=== PATIENT | male | born 1935 | race Caucasian/White ===

== ENCOUNTER 2019-11-24 12:45 | Observation (INO) | payer OTHER ==
--- NOTE | 2019-11-24 13:18 | PDOC ---
History of Present Illness - General Chief Complaint: Injury Stated Complaint: FALL/HEAD INJURY Time Seen by Provider: 11/24/19 13:17 - History of Present Illness Initial Comments: HPI: 84yo M with PMH of CKD, HTN, DM presenting after a fall. Patient states he fell earlier today while his was at a doctor's appointment. The patient was stepping out of a vehicle and suddenly fell back and hit his head. He does not know why he fell. Denies tripping or a mechanical reason for why he fell. Did not feel dizziness/weakness, chest pain, or shortness of breath. Remembers the entire episode which was witnessed by his health aide. No loss of consciousness , nausea, or vomiting. Endorsing mild neck pain. Has fallen about five times in the past year for unknown reason. His at the bedside states that he has become confused for the past six months or so. No fever or chills. PCP: Dr. Sameer Ansari ROS: Constitutional: no fever, no chills HEENT: no throat pain, no dysphagia Cardiovascular: no chest pain, no palpitations Respiratory: no cough, no shortness of breath Gastrointestinal: no abdominal pain, no nausea Genitourinary: no dysuria, no hematuria Musculoskeletal: no myalgia, no arthralgia Skin: no rash, no itching Neurologic: no headache, no weakness PE: General: Awake, alert, in no acute distress, oriented x 2 (to person, place, but not time- said it was "July" and "2011") Head: No signs of trauma Eyes: EOMI, sclera anicteric ENT: Moist mucus membranes Neck: Normal ROM, supple Lungs: Lungs clear, Normal breath sounds Cardio: Regular rhythm, S1 and S2 present Abdomen: Soft, nontender. No guarding, no rebound, no masses Extremities: Normal range of motion, Distal pulses present SKIN: Warm, Dry, normal turgor Neurologic: Cranial nerves II through XII intact. Normal speech, sensation, strength, coordination. Ambulating with cane at baseline. ED Course/MDM: DDX including but not limited to ACS, anemia, metabolic derangement, mechanical fall vs syncope, seizure Labs, EKG, CXR CT Head CT Cspine 11/24/19 13:17 CT Head: "EXAM#: TYPE/EXAM: RESULT: [id number] CT/CERVICAL SPINE CT W/O CONTR [id number] CT/HEAD CT WITHOUT CONTRAST Status post fall. Rule out fracture CT scan of the brain. A noncontrast CT scan of the brain was performed. There is moderate volume loss and ventricular dilatation. Moderate chronic microvascular ischemic changes are present No mass lesion, gross acute infarct or intracranial hemorrhage are identified. Visualized paranasal sinuses and mastoid air cells are well aerated. Calcification of the cavernous carotid arteries are noted. The calvarium is intact . Impression: Moderate atrophy. No gross evidence of a focal intracranial lesion or hemorrhage is seen. Correlate clinically to determine further evaluation and follow-up " CT Cspine: "CT scan of the cervical spine without intravenous contrast Coronal and sagittal reconstruction images were obtained. No gross fracture, subluxation or prevertebral soft tissue swelling is seen. No jumped facets are identified. C4-C5 moderately severe degenerative disc disease with mild broad- based disc osteophyte complex. C5-C6 moderately severe degenerative disc disease with vacuum phenomenon and [id number] central/right paracentral disc osteophyte complex. There is significant bilateral facet hypertrophy at multiple levels Visualized portion of the airway appears unremarkable. No gross enlarged lymph nodes are identified. Small calcified plaques at the left common carotid bifurcation Lung windows at the thoracic inlet appear unremarkable. IMPRESSION: The alignment is satisfactory. No gross fracture or subluxation is seen. Multilevel degenerative disc disease, disc osteophyte complex and bilateral facet hypertrophy, as described above. " CXR: "EXAM#: TYPE/EXAM: RESULT: [id number] RAD/CHEST X-RAY PORTABLE* Chest: Weakness A portable view of the chest is been submitted. Since 01/14/2013, there is no change of an adverse nature. There is a normal heart, normal aorta and normal jack. There is slight fullness of the superior mediastinum on the right. The lungs are clear. Angles are sharp and the bones appear intact. Correlation recommended Impression: No acute chest pathology. Reported By: Walker Crews MD 11/24/19 [id number] " CBC WBC 6.3 K/mm3 (4.0-10.0) 11/24/19 14:30 RBC 3.61 M/mm3 (4.00-5.60) L 11/24/19 14:30 Hgb 11.5 GM/dL (11.7-16.9) L 11/24/19 14:30 Hct 34.1 % (35.4-49) L 11/24/19 14:30 MCV 94.4 fl (80-96) 11/24/19 14:30 MCH 31.9 pg (25.7-33.7) 11/24/19 14:30 MCHC 33.8 g/dl (32.0-35.9) 11/24/19 14:30 RDW 13.1 % (11.9-15.9) 11/24/19 14:30 Plt Count 192 K/MM3 (134-434) 11/24/19 14:30 MPV 10.1 fl (7.5-11.1) 11/24/19 14:30 Absolute Neuts (auto) 4.6 K/mm3 (1.5-8.0) 11/24/19 14:30 Neutrophils % 73.8 % (42.8-82.8) 11/24/19 14:30 Lymphocytes % 17.9 % (8-40) 11/24/19 14:30 Monocytes % 6.3 % (3.8-10.2) 11/24/19 14:30 Eosinophils % 1.7 % (0-4.5) 11/24/19 14:30 Basophils % 0.3 % (0-2.0) 11/24/19 14:30 Nucleated RBC % 0 % (0-0) 11/24/19 14:30 No leukocytosis CMP Sodium 144 mmol/L (136-145) 11/24/19 14:30 Potassium 5.2 mmol/L (3.5-5.1) H 11/24/19 14:30 Chloride 110 mmol/L (98-107) H 11/24/19 14:30 Carbon Dioxide 27 mmol/L (21-32) 11/24/19 14:30 Anion Gap 7 MMOL/L (8-16) L 11/24/19 14:30 BUN 36.4 mg/dL (7-18) H 11/24/19 14:30 Creatinine 1.9 mg/dL (0.55-1.3) H 11/24/19 14:30 Est GFR (CKD-EPI)AfAm 36.19 11/24/19 14:30 Est GFR (CKD-EPI)NonAf 31.23 11/24/19 14:30 Random Glucose 140 mg/dL (74-106) H 11/24/19 14:30 Calcium 9.3 mg/dL (8.5-10.1) 11/24/19 14:30 Total Bilirubin 0.4 mg/dL (0.2-1) 11/24/19 14:30 AST 18 U/L (15-37) 11/24/19 14:30 ALT 24 U/L (13-61) 11/24/19 14:30 Alkaline Phosphatase 30 U/L (45-117) L 11/24/19 14:30 Creatine Kinase 284 U/L (26-308) 11/24/19 14:30 Creatine Kinase Index 1.5 % (0.0-5.0) 11/24/19 14:30 CK-MB (CK-2) 4.5 ng/mL (0.5-3.6) H 11/24/19 14:30 Troponin I 0.12 ng/ml (0.00-0.05) H 11/24/19 14:30 Total Protein 7.6 g/dl (6.4-8.2) 11/24/19 14:30 Albumin 4.0 g/dl (3.4-5.0) 11/24/19 14:30 K mildly elevated Cr elevated (appears to be at baseline) Tpn elevated, 0.12, no prior values available Concern for syncope given elevated tpn and repeated falls Plan for admission; observation is appropriate as patient with suspected cardiac ischemia with nondiagnostic initial evaluation requiring further immediate evaluation such as stress testing, imaging, and repeat laboratory testing to clarify diagnosis EKG: rate 74, Qtc 459, Sinus, PACs, no prior EKGs available 11/24/19 15:[address] Alfredo who accepted patient for tele obs under himself 11/24/19 17:11 Past History - Past Medical History Allergies/Adverse Reactions: Allergies Allergy/AdvReac Type Severity Reaction Status Date / Time exenatide [From Byetta] Allergy Verified 11/24/19 13:00 Home Medications: Ambulatory Orders Amlodipine Besylate [Norvasc -] 5 mg PO DAILY 06/01/13 Aspirin 81 mg PO DAILY 06/01/13 Losartan Potassium 50 mg PO DAILY 06/01/13 Tamsulosin HCl 0.4 mg PO DAILY 06/01/13 Hydrochlorothiazide 12.5 mg PO DAILY 11/24/19 Anemia: No Asthma: No Cancer: Yes (PROSTATE) Cardiac Disorders: No CVA: No COPD: No CHF: No Dementia: No Diabetes: Yes GI Disorders: Yes (H/O COLON POLYPS) Disorders: No HTN: Yes Hypercholesterolemia: No Liver Disease: No Seizures: No Thyroid Disease: No - Surgical History Abdominal Surgery: No Appendectomy: Yes Cardiac Surgery: No Cholecystectomy: Yes (LAP) Lung Surgery: No Neurologic Surgery: No Orthopedic Surgery: No - Psycho Social/Smoking Cessation Hx Smoking History: Never smoked Hx Alcohol Use: No Drug/Substance Use Hx: No Substance Use Type: None Hx Substance Use Treatment: No *Physical Exam - Vital Signs Last Vital Signs Temp Pulse Resp BP Pulse Ox 97.8 F 81 18 156/63 99 11/24/19 13:00 11/24/19 13:00 11/24/19 13:00 11/24/19 13:00 11/24/19 13:00 ED Treatment Course - LABORATORY CBC & Chemistry Diagram: 11/24/19 14:30 11/24/19 14:30 Discharge - Discharge Information Problems reviewed: Yes Clinical Impression/Diagnosis: Elevated troponin Fall Qualifiers: Encounter type: initial encounter Qualified Code(s): W19.XXXA - Unspecified fall, initial encounter Condition: Guarded - Admission Yes - Follow up/Referral - Patient Discharge Instructions - Post Discharge Activity
[2019-11-24 14:48] LABS: BASO % 0.3 % (0-2.0); EOS % 1.7 % (0-4.5); HEMATOCRIT 34.1 % (35.4-49); HEMOGLOBIN 11.5 GM/dL (11.7-16.9); LYMPH % 17.9 % (8-40); MCH 31.9 pg (25.7-33.7); MCHC 33.8 g/dl (32.0-35.9); MEAN CELL VOLUME 94.4 fl (80-96); MEAN PLT VOLUME 10.1 fl (7.5-11.1); MONO % 6.3 % (3.8-10.2); NEUT % 73.8 % (42.8-82.8); PLATELET COUNT 192 K/MM3 (134-434); RBC 3.61 M/mm3 (4.00-5.60); RDW 13.1 % (11.9-15.9); WHITE BLOOD COUNT 6.3 K/mm3 (4.0-10.0)
[2019-11-24 15:14] LABS: BILIRUBIN,TOTAL 0.4 mg/dL (0.2-1); BLOOD UREA NITROGEN 36.4 mg/dL (7-18); CALCIUM 9.3 mg/dL (8.5-10.1); CREATININE 1.9 mg/dL (0.55-1.3); POTASSIUM 5.2 mmol/L (3.5-5.1); TOT PROT 7.6 g/dl (6.4-8.2)
[2019-11-24] MEDS ORDERED: ACETAMINOPHEN 325 MG TABLET (FP) PO PRN (17:47)
--- NOTE | 2019-11-24 17:53 | HP ---
CHIEF COMPLAINT: fall PCP: Dr Beasley HISTORY OF PRESENT ILLNESS: Patient is a 84 yo male with a history of HTN, DM, and CKD, who presents s/p fall. Patient was standing at an office when he fell to the ground. he did not trip and he did not lose consciousness. he denies having any dizzines, spinning sensation, chest pain, nausea, or lose of bladder function. Patient reports he did hit his head but is not in any pain. he has not fallen in the past. patient usually walks with a cane. he currently denies any symptoms and he is compliant with his medications. The fall was witnessed with no differing to the story. No sick contacts recently. ER course was notable for: (1) (2) (3) Recent Travel: denies PAST MEDICAL HISTORY: HTN, DM, and ? CKD PAST SURGICAL HISTORY: appendectomy Social History: Smoking: never Alcohol: very occasionally Drugs: denies Allergies exenatide [From Byetta] Allergy (Verified 11/24/19 13:00) HOME MEDICATIONS: Home Medications Medication Instructions Recorded Amlodipine Besylate [Norvasc -] 5 mg PO DAILY 06/01/13 Aspirin 81 mg PO DAILY 06/01/13 Cholecalciferol (Vitamin D3) 1,000 unit PO DAILY 06/01/13 [Vitamin D] Furosemide [Lasix -] 40 mg PO DAILY 06/01/13 Insulin Glargine,Hum.rec.anlog 3 units SQ HS 06/01/13 [Lantus Solostar PEN -] Insulin Glulisine [Apidra] 3 unit SQ DAILY 06/01/13 Insulin Glulisine [Apidra] 4 unit SQ DAILY 06/01/13 Insulin Glulisine [Apidra] 5 unit SQ DAILY 06/01/13 Losartan Potassium 100 mg PO DAILY 06/01/13 Metoprolol Succinate [Toprol XL -] 50 mg PO DAILY 06/01/13 Tamsulosin HCl 0.4 mg PO DAILY 06/01/13 REVIEW OF SYSTEMS CONSTITUTIONAL: Absent: fever, chills, diaphoresis, generalized weakness, malaise, loss of appetite, weight change HEENT: Absent: rhinorrhea, nasal congestion, throat pain, throat swelling, difficulty swallowing, mouth swelling, ear pain, eye pain, visual changes CARDIOVASCULAR: Absent: chest pain, syncope, palpitations, irregular heart rate, lightheadedness , peripheral edema RESPIRATORY: Absent: cough, shortness of breath, dyspnea with exertion, orthopnea, wheezing, stridor, hemoptysis GASTROINTESTINAL: Absent: abdominal pain, abdominal distension, nausea, vomiting, diarrhea, constipation, melena, hematochezia GENITOURINARY: Absent: dysuria, frequency, urgency, hesitancy, hematuria, flank pain, genital pain MUSCULOSKELETAL: Absent: myalgia, arthralgia, joint swelling, back pain, neck pain SKIN: Absent: rash, itching, pallor HEMATOLOGIC/IMMUNOLOGIC: Absent: easy bleeding, easy bruising, lymphadenopathy, frequent infections ENDOCRINE: Absent: unexplained weight gain, unexplained weight loss, heat intolerance, cold intolerance NEUROLOGIC: Absent: headache, focal weakness or paresthesias, dizziness, unsteady gait, seizure, mental status changes, bladder or bowel incontinence PSYCHIATRIC: Absent: anxiety, depression, suicidal or homicidal ideation, hallucinations. PHYSICAL EXAMINATION Vital Signs - 24 hr 11/24/19 13:00 Temperature 97.8 F Pulse Rate 81 Respiratory 18 Rate Blood Pressure 156/63 O2 Sat by Pulse 99 Oximetry (%) GENERAL: Awake, alert, and fully oriented, in no acute distress. HEAD: Normal with no signs of trauma. EYES: Pupils equal, round and reactive to light, extraocular movements intact, EARS, NOSE, THROAT: Moist mucous membranes. NECK: Normal range of motion, supple without lymphadenopathy, JVD, or masses. LUNGS: Breath sounds equal, clear to auscultation bilaterally. No wheezes, and no crackles. No accessory muscle use. HEART: Regular rate and rhythm, normal S1 and S2 without murmur, rub or gallop. ABDOMEN: Soft, nontender, not distended, normoactive bowel sounds, MUSCULOSKELETAL: Normal range of motion at all joints. No bony deformities or tenderness. No CVA tenderness. LOWER EXTREMITIES: 2+ pulses, warm, well-perfused. No calf tenderness. No peripheral edema. NEUROLOGICAL: Cranial nerves II-XII intact. Normal speech. PSYCHIATRIC: Cooperative. Good eye contact. Appropriate mood and affect. SKIN: Warm, dry, normal turgor, Laboratory Results - last 24 hr 11/24/19 11/24/19 14:30 14:30 WBC 6.3 RBC 3.61 L Hgb 11.5 L Hct 34.1 L MCV 94.4 MCH 31.9 MCHC 33.8 RDW 13.1 Plt Count 192 MPV 10.1 Absolute Neuts (auto) 4.6 Neutrophils % 73.8 Lymphocytes % 17.9 Monocytes % 6.3 Eosinophils % 1.7 Basophils % 0.3 Nucleated RBC % 0 Sodium 144 Potassium 5.2 H Chloride 110 H Carbon Dioxide 27 Anion Gap 7 L BUN 36.4 H Creatinine 1.9 H Est GFR (CKD-EPI)AfAm 36.19 Est GFR (CKD-EPI)NonAf 31.23 Random Glucose 140 H Calcium 9.3 Total Bilirubin 0.4 AST 18 ALT 24 Alkaline Phosphatase 30 L Creatine Kinase 284 Creatine Kinase Index 1.5 CK-MB (CK-2) 4.5 H Troponin I 0.12 H Total Protein 7.6 Albumin 4.0 ASSESSMENT/PLAN: Patient is a 84 yo male with a history of HTN, DM, and CKD, who is admitted for fall. #Fall r/o cardiogenic vs vascular vs mechanical - orthostatics negative, no hx of falls in the past - head CT: negative, moderate dilitation - Cervical CT: degenerative disc disease , small calcified plaques - f/u PT eval - f/u echo and carotids - monitor on tele #DM - SS - BGM ACHS #HTN - continue amlodipine - hold HCTZ and losartan in setting of hyperkalemia - continue to monitor, can consider BB if uncontrolled #CKD - baseline ~1.7 - will hold nephrotoxic HTN medications for now #tropinemia - likely 2/2 to CKD - f/u repeat trop at 7 pm - if continues to rise call cardio - ekg without any st elevations or peaked t waves #BPH - continue tamsulosin FEN - hyperkalemia likely 2/2 to CKD, 1 time lokelma - low sodium/diabetic diet Dispo: monitor on tele, fu PT tomorrow Visit type - Emergency Visit Emergency Visit: Yes ED Registration Date: 11/24/19 Care time: The patient presented to the Emergency Department on the above date and was hospitalized for further evaluation of their emergent condition. - New Patient This patient is new to me today: Yes Date on this admission: 11/30/19 - Critical Care Critical Care patient: No ATTENDING PHYSICIAN STATEMENT I saw and evaluated the patient. I reviewed the resident's note and discussed the case with the resident. I agree with the resident's findings and plan as documented. SUBJECTIVE: OBJECTIVE: ASSESSMENT AND PLAN:
[2019-11-24] MEDS ORDERED: ASPIRIN 325 MG TABLET PO ONE (17:54)
[2019-11-24] MEDS ORDERED: SODIUM ZIRCONIUM CYCLOSILICATE (LOKELMA) 5 GM PACKET PO ONE (18:00)
--- NOTE | 2019-11-24 18:42 | PDOC ---
Documentation entered by Kira Linares SCRIBE, acting as scribe for Teena Ferguson MD. Teena Ferguson MD: This documentation has been prepared by the Vijay ch Nirvannie, SCRIBE, under my direction and personally reviewed by me in its entirety. I confirm that the documentation accurately reflects all work, treatment, procedures, and medical decision making performed by me. Attending Attestation - Resident Resident Name: LisaRoJoan - ED Attending Attestation I have performed the following: I have examined & evaluated the patient, The case was reviewed & discussed with the resident, I agree w/resident's findings & plan, Exceptions are as noted - HPI HPI: 11/24/19 14:27 The patient is an 84 year old male, with a significant past medical history of prostate ca, hypertension, who presents to the emergency department s/p fall with neck pain. As per patient, [facility] He endorses being able to ambulate with a steady gait s/p fall but has been experiencing persistent neck pain since the fall prompting his arrival to the ED. Patient has fallen approximately 5x from 11/13-11/14. He denies any loss of consciousness, focal changes in strength/sensation, chest pain, or shortness of breath. Allergies: Exenatide Primary Care Physician: Sameer Chandler - Physicial Exam PE: 11/24/19 14:27 GENERAL: +Awake, alert and oriented x2, in no acute distress HEAD: No signs of trauma EYES: PERRLA, EOMI, sclera anicteric, conjunctiva clear ENT: Auricles normal inspection, hearing grossly normal, nares patent, oropharynx clear without exudates. Moist mucosa NECK: No tenderness, step-offs, or deformity. No midline tenderness. Normal ROM , supple, no lymphadenopathy, JVD, or masses LUNGS: Breath sounds equal, clear to auscultation bilaterally. No wheezes, and no crackles HEART: Regular rate and rhythm, normal S1 and S2, no murmurs, rubs or gallops ABDOMEN: Soft, nontender, normoactive bowel sounds. No guarding, no rebound. No masses EXTREMITIES: Normal range of motion, no edema. No clubbing or cyanosis. No cords, erythema, or tenderness NEUROLOGICAL: Cranial nerves II through XII grossly intact. Normal speech. SKIN: Warm, Dry, normal turgor, no rashes or lesions noted. - Medical Decision Making 11/24/19 18:38 Pt presents to the Ed complaining of fall today. Mechanism of fall is unclear, although patient does not report LOC. CT head and C spine checked to rule out intracranial or cervical spinal injury and are negative. Labs show elevated troponin. Given that finding and the unclear history of the fall, will admit to medicine for serial troponins and syncope work up.
[2019-11-24] MEDS ORDERED: ASPIRIN 325 MG ENTERIC COATED TABLET (FP) ONE (18:47)
--- NOTE | 2019-11-24 19:13 | PN ---
Teaching Attending Note Name of Resident: Chelo Whipple ATTENDING PHYSICIAN STATEMENT I saw and evaluated the patient. I reviewed the resident's note and discussed the case with the resident. I agree with the resident's findings and plan as documented. SUBJECTIVE: Feels well. Denies preceding CP/palpitations/lightheadedness. No LOC. No bladder/bowel dysfunction. OBJECTIVE: Afebrile, Hemodynamically Stable. Last Vital Signs Temp Pulse Resp BP Pulse Ox 97.8 F 81 18 156/63 99 11/24/19 13:00 11/24/19 13:00 11/24/19 13:00 11/24/19 13:11/24/19 13:00 HEENT - Atraumatic, Normocephalic. Heart - S1, S2, RRR Lungs - Clear to auscultation Abdomen - soft, non-tender. Bowel Sounds normal. Extremities - no edema, no calf tenderness. Neuro - AAO x 2. Tone/Power normal LEs. Laboratory Results - last 24 hr 11/24/19 11/24/19 14:30 14:30 WBC 6.3 RBC 3.61 L Hgb 11.5 L Hct 34.1 L MCV 94.4 MCH 31.9 MCHC 33.8 RDW 13.1 Plt Count 192 MPV 10.1 Absolute Neuts (auto) 4.6 Neutrophils % 73.8 Lymphocytes % 17.9 Monocytes % 6.3 Eosinophils % 1.7 Basophils % 0.3 Nucleated RBC % 0 Sodium 144 Potassium 5.2 H Chloride 110 H Carbon Dioxide 27 Anion Gap 7 L BUN 36.4 H Creatinine 1.9 H Est GFR (CKD-EPI)AfAm 36.19 Est GFR (CKD-EPI)NonAf 31.23 Random Glucose 140 H Calcium 9.3 Total Bilirubin 0.4 AST 18 ALT 24 Alkaline Phosphatase 30 L Creatine Kinase 284 Creatine Kinase Index 1.5 CK-MB (CK-2) 4.5 H Troponin I 0.12 H Total Protein 7.6 Albumin 4.0 Current Medications Generic Name Dose Route Start Last Admin Trade Name Freq PRN Reason Stop Dose Admin Acetaminophen 650 mg 11/24/19 17:47 Tylenol - PO Q4H PRN PAIN LEVEL 6-10 Amlodipine Besylate 5 mg 11/25/19 10:00 Norvasc - PO DAILY FANTA Heparin Sodium (Porcine) 5,000 unit 11/24/19 22:00 Heparin - SQ TID [facility] Insulin Aspart 1 vial 11/24/19 22:00 Novolog Vial Sliding Scale - SQ ACHS [facility] Protocol Tamsulosin HCl 0.4 mg 11/25/19 08:30 Flomax - PO DAILY@0830 [facility] Home Medications Medication Instructions Recorded Amlodipine Besylate [Norvasc -] 5 mg PO DAILY 06/01/13 Aspirin 81 mg PO DAILY 06/01/13 Losartan Potassium 50 mg PO DAILY 06/01/13 Tamsulosin HCl 0.4 mg PO DAILY 06/01/13 Hydrochlorothiazide 12.5 mg PO DAILY 11/24/19 ASSESSMENT AND PLAN: 84 year old male with history of HTN, DM 2, CKD 3, presents s/p fall. No preceding chest pain/palpitations/SOB/lightheadedness. Sustained HI but no LOC. 1. Mechanical Fall versus Syncope Orthostatics negative CT head - no acute findings CT C-Spine - multilevel DJD Telemonitoring Echo Carotid Duplex PT 2. Troponin Egression, likely chronic sec to CKD 3 ECG - no acute changes Asymptomatic. Echo pending. Telemonitoring Trend TropI Cardiology consult if Trops are dynamic. 3. Hyperkalemia ?sec to CKD +/- ARB ARB held. [employer]knowledge Monitor K. 4. DM 2- Maintain on Novolog sliding scale. A1c requested. 5. HTN - continue Norvasc. Losartan held. 6. CKD 3 - Stable. Creat at baseline. 7. BPH - continue Tamsulosin. DVT Px - Heparin SQ
[2019-11-24] MEDS: HEPARIN NA (PORCINE) 5,000 UNITS/ML 1ML VIAL SQ SCH (23:38)
[2019-11-24] MEDS: INSULIN SLIDING SCALE (NOVOLOG) 1 VIAL SQ SCH (23:39)
[2019-11-25 02:02] VITALS: BMI 22.7
[2019-11-25 03:11] VITALS: TEMP 98.5
[2019-11-25] MEDS: INSULIN SLIDING SCALE (NOVOLOG) 1 VIAL SQ SCH ×2 (06:53→11:52)
[2019-11-25] MEDS: HEPARIN NA (PORCINE) 5,000 UNITS/ML 1ML VIAL SQ SCH (06:53)
[2019-11-25 07:34] LABS: BASO % 2.4 % (0-2.0); EOS % 3.6 % (0-4.5); HEMATOCRIT 34.1 % (35.4-49); HEMOGLOBIN 11.5 GM/dL (11.7-16.9); LYMPH % 31.8 % (8-40); MCH 31.9 pg (25.7-33.7); MCHC 33.7 g/dl (32.0-35.9); MEAN CELL VOLUME 94.7 fl (80-96); MONO % 6.6 % (3.8-10.2); NEUT % 55.6 % (42.8-82.8); PLATELET COUNT 179 K/MM3 (134-434); RDW 13.3 % (11.9-15.9); WHITE BLOOD COUNT 5.6 K/mm3 (4.0-10.0)
[2019-11-25 08:10] LABS: ALBUMIN 3.7 g/dl (3.4-5.0); BILIRUBIN,TOTAL 0.7 mg/dL (0.2-1); BLOOD UREA NITROGEN 30.5 mg/dL (7-18); CALCIUM 9.3 mg/dL (8.5-10.1); CREATININE 1.7 mg/dL (0.55-1.3); MAGNESIUM 2.7 mg/dL (1.8-2.4); PHOSPHOROUS 3.3 mg/dL (2.5-4.9); POTASSIUM 4.9 mmol/L (3.5-5.1); TOT PROT 7.2 g/dl (6.4-8.2)
[2019-11-25] MEDS ORDERED: TAMSULOSIN HCL 0.4 MG CAP PO SCH (08:30)
[2019-11-25] MEDS ORDERED: ASPIRIN COATED 81 MG TABLET.EC PO SCH (10:00)
[2019-11-25] MEDS ORDERED: amLODIPine BESYLATE 5 MG TABLET (FP) PO SCH (10:00)
--- NOTE | 2019-11-25 11:34 | ECHO ---
Name: BREE LOPEZ Exam:Adult Echocardiogram Study Date: 11/25/2019 08:12 AM Age: 84 yrs Reason For Study: r/o syncope Height: 65 in Weight: 140 lb BSA: 1.7 m2 MMode/2D Measurements & Calculations IVSd: 0.77 cm Ao root diam: 4.0 cm LVIDd: 5.5 cm LA dimension: 3.8 cm LVIDs: 3.7 cm ACS: 2.2 cm LVPWd: 1.1 cm IVSs: 1.5 cm LVPWs: 1.5 cm EDV(Teich): 146.5 ml ESV(Teich): 57.0 ml Doppler Measurements & Calculations MV E max megan: 75.0 cm/sec Ao V2 max: 98.3 cm/sec MV A max megan: 107.4 cm/sec Ao max P.9 mmHg MV E/A: 0.70 Ao V2 mean: 70.5 cm/sec Ao mean P.2 mmHg Ao V2 VTI: 21.8 cm AI P1/2t: 506.8 msec AI max megan: 275.0 cm/sec Med Peak E' Megan: 4.8 cm/sec AI max P.3 mmHg Med E/e': 15.5 Lat Peak E' Megan: 6.5 cm/sec AI dec slope: 158.9 cm/sec2 Lat E/e': 11.6 Left Ventricle The left ventricular size, thickness and function are normal. Ejection Fraction = 50-55%. The transmi tral spectral Doppler flow pattern is suggestive of restrictive physiology. Right Ventricle The right ventricle is normal in size and function. Atria The left atrium is borderline dilated. Right atrial size is normal. Mitral Valve There is moderate to severe mitral annular calcification. There is no mitral valve stenosis. Tricuspid Valve The tricuspid valve is normal in structure and function. No tricuspid regurgitation. Aortic Valve The aortic valve opens well. No hemodynamically significant valvular aortic stenosis. Mild aortic regurgitation. Pulmonic Valve The pulmonic valve is not well seen, but is grossly normal. There is no pulmonic valvular stenosis. Great Vessels Mild aortic root dilatation. Pericardium/Pleura There is no pericardial effusion. Interpretation Summary Ejection Fraction = 50-55%. There is moderate to severe mitral annular calcification. Mild aortic regurgitation. Mild aortic root dilatation. There is no pericardial effusion. MD Arriaga *William 11/25/2019 11:34 AM
[2019-11-25] MEDS ORDERED: HYDROCHLOROTHIAZIDE 12.5 MG CAPSULE (FP) PO SCH (12:00)
--- NOTE | 2019-11-25 12:55 | PN ---
Teaching Attending Note Name of Resident: Uriel Mcintyre ATTENDING PHYSICIAN STATEMENT I saw and evaluated the patient. I reviewed the resident's note and discussed the case with the resident. I agree with the resident's findings and plan as documented. SUBJECTIVE: Feels well. No further syncopal episodes. No lightheadedness/ dizziness/CP/palpitations OBJECTIVE: Afebrile, Hemodynamically Stable. Last Vital Signs Temp Pulse Resp BP Pulse Ox 98.5 F 68 18 152/55 L 97 11/25/19 02:00 11/25/19 06:00 11/25/19 06:00 11/25/19 06:00 11/24/19 19:58 Heart - S1, S2, RRR Lungs - Clear to auscultation Abdomen - soft, non-tender. Bowel Sounds normal. Extremities - no edema, no calf tenderness. Neuro - AAO x 2. Tone/Power normal LEs. Laboratory Results - last 24 hr 11/24/19 11/24/19 11/24/19 14:30 14:30 19:30 WBC 6.3 RBC 3.61 L Hgb 11.5 L Hct 34.1 L MCV 94.4 MCH 31.9 MCHC 33.8 RDW 13.1 Plt Count 192 MPV 10.1 Absolute Neuts (auto) 4.6 Neutrophils % 73.8 Lymphocytes % 17.9 Monocytes % 6.3 Eosinophils % 1.7 Basophils % 0.3 Nucleated RBC % 0 Sodium 144 Potassium 5.2 H Chloride 110 H Carbon Dioxide 27 Anion Gap 7 L BUN 36.4 H Creatinine 1.9 H Est GFR (CKD-EPI)AfAm 36.19 Est GFR (CKD-EPI)NonAf 31.23 POC Glucometer Random Glucose 140 H Calcium 9.3 Phosphorus Magnesium Total Bilirubin 0.4 AST 18 ALT 24 Alkaline Phosphatase 30 L Creatine Kinase 284 Creatine Kinase Index 1.5 CK-MB (CK-2) 4.5 H Troponin I 0.12 H 0.13 H Total Protein 7.6 Albumin 4.0 11/25/19 11/25/19 11/25/19 05:30 05:30 06:52 WBC 5.6 RBC 3.60 L Hgb 11.5 L Hct 34.1 L MCV 94.7 MCH 31.9 MCHC 33.7 RDW 13.3 Plt Count 179 MPV 10.0 Absolute Neuts (auto) 3.1 Neutrophils % 55.6 D Lymphocytes % 31.8 D Monocytes % 6.6 Eosinophils % 3.6 D Basophils % 2.4 H D Nucleated RBC % 0 Sodium 143 Potassium 4.9 Chloride 110 H Carbon Dioxide 27 Anion Gap 6 L BUN 30.5 H Creatinine 1.7 H Est GFR (CKD-EPI)AfAm 41.40 Est GFR (CKD-EPI)NonAf 35.72 POC Glucometer 126 Random Glucose 118 H Calcium 9.3 Phosphorus 3.3 Magnesium 2.7 H Total Bilirubin 0.7 AST 21 ALT 22 Alkaline Phosphatase 31 L Creatine Kinase Creatine Kinase Index CK-MB (CK-2) Troponin I 0.15 H Total Protein 7.2 Albumin 3.7 11/25/19 11:49 WBC RBC Hgb Hct MCV MCH MCHC RDW Plt Count MPV Absolute Neuts (auto) Neutrophils % Lymphocytes % Monocytes % Eosinophils % Basophils % Nucleated RBC % Sodium Potassium Chloride Carbon Dioxide Anion Gap BUN Creatinine Est GFR (CKD-EPI)AfAm Est GFR (CKD-EPI)NonAf POC Glucometer 154 Random Glucose Calcium Phosphorus Magnesium Total Bilirubin AST ALT Alkaline Phosphatase Creatine Kinase Creatine Kinase Index CK-MB (CK-2) Troponin I Total Protein Albumin Current Medications Generic Name Dose Route Start Last Admin Trade Name Freq PRN Reason Stop Dose Admin Acetaminophen 650 mg 11/24/19 17:47 Tylenol - PO Q4H PRN PAIN LEVEL 6-10 Amlodipine Besylate 5 mg 11/25/19 10:00 11/25/19 10:28 Norvasc - PO 5 mg DAILY FANTA Administration Aspirin 81 mg 11/25/19 10:00 11/25/19 10:29 Ecotrin - PO 81 mg DAILY FANTA Administration Heparin Sodium (Porcine) 5,000 unit 11/24/19 22:00 11/25/19 06:53 Heparin - SQ 5,000 unit TID FANTA Administration Hydrochlorothiazide 12.5 mg 11/25/19 12:00 11/25/19 11:52 Hctz - PO 12.5 mg DAILY FANTA Administration Insulin Aspart 1 vial 11/24/19 22:00 11/25/19 11:52 Novolog Vial Sliding Scale - SQ 2 units ACHS FANTA Administration Protocol Tamsulosin HCl 0.4 mg 11/25/19 08:30 11/25/19 10:28 Flomax - PO 0.4 mg DAILY@0830 FANTA Administration Home Medications Medication Instructions Recorded Amlodipine Besylate [Norvasc -] 5 mg PO DAILY 06/01/13 Aspirin 81 mg PO DAILY 06/01/13 Losartan Potassium 50 mg PO DAILY 06/01/13 Tamsulosin HCl 0.4 mg PO DAILY 06/01/13 Hydrochlorothiazide 12.5 mg PO DAILY 11/24/19 ASSESSMENT AND PLAN: 84 year old male with history of HTN, DM 2, CKD 3, presents s/p fall. No preceding chest pain/palpitations/SOB/lightheadedness. Sustained HI but no LOC. 1. Mechanical Fall versus Syncope Orthostatics negative CT head - no acute findings CT C-Spine - multilevel DJD Telemonitoring - no events overrnight Echo - normal EF, no regional wall motion abnormalities. Carotid Duplex pending PT 2. Troponin Elevation, flat, likely chronic sec to CKD 3 ECG - no acute changes Asymptomatic. Echo - no wall motion abnormalities. No telemonitoing events. No suggestion of ACS. Cardiology follow up as out-patient. 3. Hyperkalemia ?sec to CKD +/- ARB - resolved s/p Lokelma ARB held. PCP/Cardio follow up as out-patient. 4. DM 2 - Maintain on Novolog sliding scale during inpatient stay. to clarify DM 2 home meds. 5. HTN - continue Norvasc, HCTZ. Losartan held. 6. CKD 3 - Stable. Creat at baseline. 7. BPH - continue Tamsulosin. DVT Px - Heparin SQ If Carotid Duplex negative and if mobilizes well with PT, can discharge with Cardiology out-patient follow up.
[2019-11-25 13:09] VITALS: BP 140/60; PULSE 61
--- NOTE | 2019-11-25 14:45 | PN ---
Physical Exam: SUBJECTIVE: Patient seen and examined OBJECTIVE: Vital Signs Period Temp Pulse Resp BP Sys/Petty Pulse Ox Last 24 Hr 98 F-98.5 F 59-68 18-18 140-162/55-73 97-97 GENERAL: The patient is awake, alert, and fully oriented, in no acute distress. HEAD: Normal with no signs of trauma. EYES: PERRL, extraocular movements intact, sclera anicteric, conjunctiva clear. No ptosis. ENT: Ears normal, nares patent, oropharynx clear without exudates, moist mucous membranes. NECK: Trachea midline, full range of motion, supple. LUNGS: Breath sounds equal, clear to auscultation bilaterally, no wheezes, no crackles, no accessory muscle use. HEART: Regular rate and rhythm, S1, S2 without murmur, rub or gallop. ABDOMEN: Soft, nontender, nondistended, normoactive bowel sounds, no guarding, no rebound, no hepatosplenomegaly, no masses. EXTREMITIES: 2+ pulses, warm, well-perfused, no edema. NEUROLOGICAL: Cranial nerves II through XII grossly intact. Normal speech, gait not observed. PSYCH: Normal mood, normal affect. SKIN: Warm, dry, normal turgor, no rashes or lesions noted Laboratory Results - last 24 hr 11/24/19 11/24/19 11/24/19 14:30 14:30 19:30 WBC 6.3 RBC 3.61 L Hgb 11.5 L Hct 34.1 L MCV 94.4 MCH 31.9 MCHC 33.8 RDW 13.1 Plt Count 192 MPV 10.1 Absolute Neuts (auto) 4.6 Neutrophils % 73.8 Lymphocytes % 17.9 Monocytes % 6.3 Eosinophils % 1.7 Basophils % 0.3 Nucleated RBC % 0 Sodium 144 Potassium 5.2 H Chloride 110 H Carbon Dioxide 27 Anion Gap 7 L BUN 36.4 H Creatinine 1.9 H Est GFR (CKD-EPI)AfAm 36.19 Est GFR (CKD-EPI)NonAf 31.23 POC Glucometer Random Glucose 140 H Calcium 9.3 Phosphorus Magnesium Total Bilirubin 0.4 AST 18 ALT 24 Alkaline Phosphatase 30 L Creatine Kinase 284 Creatine Kinase Index 1.5 CK-MB (CK-2) 4.5 H Troponin I 0.12 H 0.13 H Total Protein 7.6 Albumin 4.0 11/25/19 11/25/19 11/25/19 05:30 05:30 06:52 WBC 5.6 RBC 3.60 L Hgb 11.5 L Hct 34.1 L MCV 94.7 MCH 31.9 MCHC 33.7 RDW 13.3 Plt Count 179 MPV 10.0 Absolute Neuts (auto) 3.1 Neutrophils % 55.6 D Lymphocytes % 31.8 D Monocytes % 6.6 Eosinophils % 3.6 D Basophils % 2.4 H D Nucleated RBC % 0 Sodium 143 Potassium 4.9 Chloride 110 H Carbon Dioxide 27 Anion Gap 6 L BUN 30.5 H Creatinine 1.7 H Est GFR (CKD-EPI)AfAm 41.40 Est GFR (CKD-EPI)NonAf 35.72 POC Glucometer 126 Random Glucose 118 H Calcium 9.3 Phosphorus 3.3 Magnesium 2.7 H Total Bilirubin 0.7 AST 21 ALT 22 Alkaline Phosphatase 31 L Creatine Kinase Creatine Kinase Index CK-MB (CK-2) Troponin I 0.15 H Total Protein 7.2 Albumin 3.7 11/25/19 11:49 WBC RBC Hgb Hct MCV MCH MCHC RDW Plt Count MPV Absolute Neuts (auto) Neutrophils % Lymphocytes % Monocytes % Eosinophils % Basophils % Nucleated RBC % Sodium Potassium Chloride Carbon Dioxide Anion Gap BUN Creatinine Est GFR (CKD-EPI)AfAm Est GFR (CKD-EPI)NonAf POC Glucometer 154 Random Glucose Calcium Phosphorus Magnesium Total Bilirubin AST ALT Alkaline Phosphatase Creatine Kinase Creatine Kinase Index CK-MB (CK-2) Troponin I Total Protein Albumin Active Medications Generic Name Dose Route Start Last Admin Trade Name Freq PRN Reason Stop Dose Admin Acetaminophen 650 mg 11/24/19 17:47 Tylenol - PO Q4H PRN PAIN LEVEL 6-10 Amlodipine Besylate 5 mg 11/25/19 10:00 11/25/19 10:28 Norvasc - PO 5 mg DAILY FANTA Administration Aspirin 81 mg 11/25/19 10:00 11/25/19 10:29 Ecotrin - PO 81 mg DAILY FANTA Administration Heparin Sodium (Porcine) 5,000 unit 11/24/19 22:00 11/25/19 06:53 Heparin - SQ 5,000 unit TID FANTA Administration Hydrochlorothiazide 12.5 mg 11/25/19 12:00 11/25/19 11:52 Hctz - PO 12.5 mg DAILY FANTA Administration Insulin Aspart 1 vial 11/24/19 22:00 11/25/19 11:52 Novolog Vial Sliding Scale - SQ 2 units ACHS FANTA Administration Protocol Tamsulosin HCl 0.4 mg 11/25/19 08:30 11/25/19 10:28 Flomax - PO 0.4 mg DAILY@0830 FANTA Administration ASSESSMENT/PLAN: ATTENDING PHYSICIAN STATEMENT I saw and evaluated the patient. I reviewed the resident's note and discussed the case with the resident. I agree with the resident's findings and plan as documented. SUBJECTIVE: OBJECTIVE: ASSESSMENT AND PLAN:
--- NOTE | 2019-11-25 15:11 | DS ---
Physical Exam: SUBJECTIVE: Patient seen and examined OBJECTIVE: Vital Signs Period Temp Pulse Resp BP Sys/Petty Pulse Ox Last 24 Hr 98 F-98.5 F 59-68 18-18 140-162/55-73 97-97 PHYSICAL EXAM GENERAL: The patient is awake, alert, and fully oriented, in no acute distress. HEAD: Normal with no signs of trauma. EYES: PERRL, extraocular movements intact, sclera anicteric, conjunctiva clear. ENT: Ears normal, nares patent, oropharynx clear without exudates, moist mucous membranes. NECK: Trachea midline, full range of motion, supple. LUNGS: Breath sounds equal, clear to auscultation bilaterally, no wheezes, no crackles, no accessory muscle use. HEART: Regular rate and rhythm, S1, S2 without murmur, rub or gallop. ABDOMEN: Soft, nontender, nondistended, normoactive bowel sounds, no guarding, no rebound, no hepatosplenomegaly, no masses. EXTREMITIES: 2+ pulses, warm, well-perfused, no edema. NEUROLOGICAL: Cranial nerves II through XII grossly intact. Normal speech, gait not observed. PSYCH: Normal mood, normal affect. SKIN: Warm, dry, normal turgor, no rashes or lesions noted. LABS Laboratory Results - last 24 hr 11/24/19 11/24/19 11/25/19 14:30 19:30 05:30 WBC 5.6 RBC 3.60 L Hgb 11.5 L Hct 34.1 L MCV 94.7 MCH 31.9 MCHC 33.7 RDW 13.3 Plt Count 179 MPV 10.0 Absolute Neuts (auto) 3.1 Neutrophils % 55.6 D Lymphocytes % 31.8 D Monocytes % 6.6 Eosinophils % 3.6 D Basophils % 2.4 H D Nucleated RBC % 0 Sodium 144 Potassium 5.2 H Chloride 110 H Carbon Dioxide 27 Anion Gap 7 L BUN 36.4 H Creatinine 1.9 H Est GFR (CKD-EPI)AfAm 36.19 Est GFR (CKD-EPI)NonAf 31.23 POC Glucometer Random Glucose 140 H Calcium 9.3 Phosphorus Magnesium Total Bilirubin 0.4 AST 18 ALT 24 Alkaline Phosphatase 30 L Creatine Kinase 284 Creatine Kinase Index 1.5 CK-MB (CK-2) 4.5 H Troponin I 0.12 H 0.13 H Total Protein 7.6 Albumin 4.0 11/25/19 11/25/19 11/25/19 05:30 06:52 11:49 WBC RBC Hgb Hct MCV MCH MCHC RDW Plt Count MPV Absolute Neuts (auto) Neutrophils % Lymphocytes % Monocytes % Eosinophils % Basophils % Nucleated RBC % Sodium 143 Potassium 4.9 Chloride 110 H Carbon Dioxide 27 Anion Gap 6 L BUN 30.5 H Creatinine 1.7 H Est GFR (CKD-EPI)AfAm 41.40 Est GFR (CKD-EPI)NonAf 35.72 POC Glucometer 126 154 Random Glucose 118 H Calcium 9.3 Phosphorus 3.3 Magnesium 2.7 H Total Bilirubin 0.7 AST 21 ALT 22 Alkaline Phosphatase 31 L Creatine Kinase Creatine Kinase Index CK-MB (CK-2) Troponin I 0.15 H Total Protein 7.2 Albumin 3.7 HOSPITAL COURSE: Date of Admission:11/24/19 84 y/o M, pmh of HTN, DM, CKD presented s/p fall. Pt was worked up for cardiogenic vs vascular vs mechanical causes. Head CT was negative, moderate dilitation and Cervical CT showed degenerative disc disease, small calcified plaques. Pt's orthostatics were negative w/ no previous hx of falls. Pt was monitored overnight on tele, which showed no overnight events. His Echo was normal EF, no regional wall motion abnormalities. His EKG was rate 74, Qtc 459, Sinus, PACs, no prior EKGs available. His trops were mildly elevated at .15 but likely due to his CKD. Pt's carotid doppler showed mild to moderate carotid calcification b/l. I discussed with pt the need to f/u with his PCP Dr. Callahan and his longwall foreman Dr. Kyree Pizarro. He was discharged home on his home medicine and his Losartan was stopped due to hyperkalemia on presentation. Telemonitoring - no events overrnight Echo - normal EF, no regional wall motion abnormalities. EKG: rate 74, Qtc 459, Sinus, PACs, no prior EKGs available Cervical CT showed degenerative disc disease, small calcified plaques Head CT was negative, moderate dilitation Date of Discharge: 11/25/19 Minutes to complete discharge: 40 Discharge Summary Problems reviewed: Yes Reason For Visit: ELEVATED TROPONIN LEVEL Condition: Improved - Instructions Diet, Activity, Other Instructions: You were admitted to the hospital for falling and hitting your head. While you were in the hospital, we evaluated you with lab work, blood work, imaging including a CAT scan of your Head and ultrasound of your carotid arteries. We treated you with medications and your symptoms improved. On imaging of your carotid arteries, we found some mild plaque build up in your carotid arteries, which you will need to follow up on with your longwall foreman and primary care physician. Stop taking your Loasartan. In one week you need to have your potassium rechecked and discuss with your primary care doctor if you should restart that medication. Please continue taking all your medications as prescribed Please follow up with your longwall foreman, Dr. Pizarro within 1 week. If you don't have one, we have provided you with our longwall foreman, Dr. Cotto. Please follow up with your primary care physician within 1 week Return to the emergency room, if you experience worsening of your symptoms, chest pains, abdominal pain or worsening of any of your conditions. Referrals: Mal Cotto MD [Staff Physician] - Sameer Nuno MD [Primary Care Provider] - Disposition: [facility]/HOME HEALTH CARE - Home Medications Comprehensive Discharge Medication List: Ambulatory Orders Amlodipine Besylate [Norvasc -] 10 mg PO DAILY 06/01/13 Tamsulosin HCl 0.4 mg PO DAILY 06/01/13 Hydrochlorothiazide 12.5 mg PO DAILY 11/24/19 Furosemide [Lasix -] 20 mg PO DAILY 11/25/19 Insulin Glargine,Hum.rec.anlog [Lantus] 20 unit DAILY 11/25/19 Insulin Sliding Scale [Novolog Vial Sliding Scale -] 17 units SQ DAILY 11/25/19 Metoprolol Succinate 50 mg PO DAILY 11/25/19 This patient is new to me today: Yes Date on this admission: 11/28/19 Emergency Visit: Yes ED Registration Date: 11/24/19 Care time: The patient presented to the Emergency Department on the above date and was hospitalized for further evaluation of their emergent condition. Critical Care patient: No - Discharge Referral Referred to [facility] Med P.C.: No ATTENDING PHYSICIAN STATEMENT I saw and evaluated the patient. I reviewed the resident's note and discussed the case with the resident. I agree with the resident's findings and plan as documented. SUBJECTIVE: OBJECTIVE: ASSESSMENT AND PLAN:
--- NOTE | 2019-11-25 15:16 | EKG ---
Test Reason : Blood Pressure : / mmHG Vent. Rate : 068 BPM Atrial Rate : 068 BPM P-R Int : 170 ms QRS Dur : 106 ms QT Int : 418 ms P-R-T Axes : 064 -55 044 degrees QTc Int : 444 ms NORMAL SINUS RHYTHM LEFT ANTERIOR FASCICULAR BLOCK MINIMAL VOLTAGE CRITERIA FOR LVH, MAY BE NORMAL VARIANT ABNORMAL ECG Confirmed by WALLY LEY MD ([id number]) on 11/25/2019 3:15:49 PM Referred By: Confirmed By:WALLY LEY MD
== END 2019-11-25 15:30 | disposition home health service (06) ==
LOC: SUPCPDRO 12:45 → JER 12:45 → JERBED 17:10 → J4W 21:31
PROC: 3E013VG Introduction of Insulin into Subcutaneous Tissue, Percutaneous Approach (ICD-10-PCS; principal; 2019-11-24)
PROC: 3E013GC Introduction of Other Therapeutic Substance into Subcutaneous Tissue, Percutaneous Approach (ICD-10-PCS; 2019-11-24)
DX: R77.8 Other specified abnormalities of plasma proteins (principal); E11.22 Type 2 diabetes mellitus with diabetic chronic kidney disease; I12.9 Hypertensive chronic kidney disease with stage 1 through stage 4 chronic kidney disease, or unspecified chronic kidney disease; N18.3 Chronic kidney disease, stage 3 (moderate); Z79.84 Long term (current) use of oral hypoglycemic drugs; E87.6 Hypokalemia; N40.0 Benign prostatic hyperplasia without lower urinary tract symptoms; Z85.46 Personal history of malignant neoplasm of prostate; W18.39XA Other fall on same level, initial encounter; Y93.89 Activity, other specified; Y92.89 Other specified places as the place of occurrence of the external cause
CPT/HCPCS: 36415; 70450-TC; 71045-TC-FY; 72125-TC; 80053; 82550; 82553; 82962; 83735; 84100; 84484; 85025; 93005; 93010; 93306-TC; 93880-TC; 96372; 97116-GP; 97161-GP; 99285-25; G0378; J1644